=== PATIENT | female | born 1950 | race Caucasian/White ===

== ENCOUNTER 2017-12-16 12:48 | Day surgery (SDC) | payer BC, MEDICARE ==
[~2017-12-16] VITALS: Ht 157.5 cm; Wt 68.0 kg
[~2017-12-16 12:48] MED LIST: ATENOLOL25 MG PO; BENZONATATE100 MG PO; SIMVASTATIN20 MG PO; ZOLOFT50 MG PO
[2017-12-16] MEDS ORDERED: ALEVE220 M1 PO (13:05)
--- NOTE | 2017-12-16 14:27 | NUR ---
12/16/17 1427 Bia Calhoun 1421 PT ARRIVED DROWSY AND SLEEPING OFF AND ON. RESP EVEN AND UNLABORED.
--- NOTE | 2017-12-16 19:37 | OR ---
[facility] [address] [place], [place] [address] Signed DATE OF OPERATION: 12/16/2017 SURGEON: Edelmira Porter MD PREOPERATIVE DIAGNOSIS: History of colonic polyp, otherwise asymptomatic. POSTOPERATIVE DIAGNOSIS: Small polyp at 20 cm (excised), hypertrophied anal papilla x2. PROCEDURE: Total colonoscopy to cecum with cold morcellation polypectomy x1. ANESTHESIA: Intravenous sedation, fentanyl 150 mcg, Versed 5 mg. INDICATION: This 67-year-old white woman is a patient of Raji Bain and underwent colonoscopy by Dr. Westfall in [place], [place] in 2012, she was said to have polyps. She has family history of colon cancer in her mother. She is currently asymptomatic. Surveillance colonoscopy was recommended at this time. She understands risks of bleeding, infection, and perforation and wished to proceed. FINDINGS: The prep was excellent. Complete colonoscopy was undertaken to the cecum without question. She had a small polyp at 20 cm, which was excised with cold morcellation technique. It was barely visible except with narrow-band imaging. The remaining colon was normal except for some hypertrophied anal papilla on retroflexed view of the rectum. DESCRIPTION OF PROCEDURE: The patient was brought to the endoscopy suite and placed in lateral decubitus position, given intravenous sedation to the point of slurred speech and nystagmus. Digital rectal examination was normal. An Olympus video colonoscope was passed in the rectum and manipulated throughout the colon, ultimately intubating the cecum itself. The ileocecal valve and appendiceal orifice were normal. The scope was withdrawn from that point and examination throughout undertaken showing no sign of abnormality until approximately 20 cm from the anal verge, where a small polyp was noted. It was uncertain if this was much of a polyp, but with narrow-band imaging, it became more obvious. Cold morcellation polypectomy was Electronically Signed By: EDELMIRA PORTER MD 12/16/17 193 PATIENT NAME: BERENICE NEWMAN OPERATIVE REPORT DATE OF : 52 REPORT #: [id number] PHYSICIAN: EDELMIRA PORTER MD PCP: RAJI BAIN REPORT IS CONFIDENTIAL AND NOT TO BE RELEASED WITHOUT AUTHORIZATION [facility] [address], [place] [address] Signed undertaken on that basis. The scope was further withdrawn and ultimately retroflexed view in the rectum undertaken showing no sign of polyps or cancer, but a few hypertrophied anal papilla. Scope was straightened, withdrawn, removed, and the patient was taken to recovery room in good condition. CONCLUDING DIAGNOSES: 1. Small polyp of sigmoid (excised). 2. Hypertrophied anal papilla. PLAN: Recommend high-fiber diet. Repeat colonoscopy in 5 years, sooner if clinically indicated. She will return to the ongoing care of Raji Bain. MD AJ Arce/REBA /[id number] cc: Raji Bain PA-C Copies: RAJI BAIN ~ Electronically Signed By: EDELMIRA PORTER MD 12/16/17 1937 PATIENT NAME: BERENICE NEWMAN OPERATIVE REPORT DATE OF : 52 REPORT #: [id number] PHYSICIAN: EDELMIRA PORTER MD PCP: RAJI BAIN PAC REPORT IS CONFIDENTIAL AND NOT TO BE RELEASED WITHOUT AUTHORIZATION
== END 2017-12-16 15:26 | disposition home or self-care (01) ==
LOC: OPS 12:48 → DS 12:48 → OPS 14:00 → DS 14:00 → OPS 15:26
PROVIDERS: Surgery
PROC: 0DBN8ZZ Excision of Sigmoid Colon, Via Natural or Artificial Opening Endoscopic (ICD-10-PCS; principal; 2017-12-16 14:00)
DX: Z12.11 Encounter for screening for malignant neoplasm of colon (principal); K63.5 Polyp of colon; K62.89 Other specified diseases of anus and rectum; J45.909 Unspecified asthma, uncomplicated; F32.9 Major depressive disorder, single episode, unspecified; Z80.0 Family history of malignant neoplasm of digestive organs; Z86.010 Personal history of colon polyps
CPT/HCPCS: 88305; 99153; G0500; J2250; J3010

== ENCOUNTER 2018-04-12 14:10 | Emergency (ER) | payer BC, MEDICARE ==
[~2018-04-12] VITALS: Ht 157.5 cm; Wt 68.0 kg
[~2018-04-12 14:10] MED LIST changes: +ALEVE220 M1 PO
[2018-04-12] MEDS ORDERED: SIMVASTATIN20 MG PO (14:24)
== END 2018-04-12 16:06 | disposition home or self-care (01) ==
LOC: ED 14:10
PROC: 0W3Q7ZZ Control Bleeding in Respiratory Tract, Via Natural or Artificial Opening (ICD-10-PCS; principal; 2018-04-12)
DX: R04.0 Epistaxis (principal); J45.909 Unspecified asthma, uncomplicated; Z88.8 Allergy status to other drugs, medicaments and biological substances; Z91.048 Other nonmedicinal substance allergy status; Z79.899 Other long term (current) drug therapy
CPT/HCPCS: 30901; 99283

== ENCOUNTER 2021-09-23 07:25 | Emergency (ER) | payer MEDICARE ==
[~2021-09-23] VITALS: Ht 157.5 cm; Wt 68.0 kg
[2021-09-23] MEDS ORDERED: LISINOPRIL5 MG PO (08:49)
[2021-09-23] MEDS ORDERED: METOPROLOL SUCC25 MG PO (08:50)
== END 2021-09-23 08:50 | disposition home or self-care (01) ==
LOC: ED 07:25
DX: J02.9 Acute pharyngitis, unspecified (principal); Z20.822 Contact with and (suspected) exposure to COVID-19; J45.909 Unspecified asthma, uncomplicated; Z88.8 Allergy status to other drugs, medicaments and biological substances; Z91.048 Other nonmedicinal substance allergy status; Z79.899 Other long term (current) drug therapy
CPT/HCPCS: 87081; 99283; U0003

== ENCOUNTER 2023-04-22 11:39 | Day surgery (SDC) | payer MEDICARE, OTHER ==
[~2023-04-22] VITALS: Ht 157.5 cm; Wt 61.3 kg
[~2023-04-22 11:39] MED LIST changes: +LISINOPRIL5 MG PO; +MELATONIN5 M2 PO; +METOPROLOL SUCC25 MG PO; +PROZAC10 MG PO; +VENTOLIN HFA18 GM PO
[2023-04-22] MEDS ORDERED: ZYRTEC10 MG PO (12:20)
[2023-04-22 12:32] VITALS: BP 149/64
--- NOTE | 2023-04-22 13:47 | NUR ---
04/22/23 1347 Julia Carey 1337 PT ARRIVED IN PACU SLEEPY. ABD SOFT AND PASSING FLATUS. 1346 RESTING. REU.
[2023-04-22 14:09] VITALS: BP 131/61
--- NOTE | 2023-04-23 14:48 | PATH ---
[facility] [address] [facility] [place] [address] Signed SPECIMEN(S): A CECUM POLYP SPECIMEN(S): B RECTOSIGMOID POLYP SPECIMEN SOURCE: A. CECUM POLYP B. RECTOSIGMOID POLYP CLINICAL HISTORY: A. Cecum polyp. B. Rectosigmoid polyp. Preop: Hx of cecal polyp 2018. Postop: Hyperplastic polyps of rectosigmoid at cecum. FINAL PATHOLOGIC DIAGNOSIS: A. Cecum, polypectomy: - Tubular adenoma B. Colon, rectosigmoid, polypectomy: - Hyperplastic polyp BRP MICROSCOPIC EXAMINATION: Histologic sections of all submitted blocks are examined by light microscopy. These findings, together with the gross examination, support the pathologic diagnosis. BRP GROSS DESCRIPTION: A. The specimen, labeled and designated "Powel, cecum polyp," is received in formalin and consists of two maza soft tissue fragments, ranging from 0.1-0.2 cm. Entirely submitted in (A1). B. The specimen, labeled and designated "Powel, rectosigmoid colon polyp," is received in formalin and consists of five maza soft tissue fragments, ranging from 0.2-0.3 cm. Entirely submitted in (B1). JS (under the direct supervision of a pathologist) The Gross Description was prepared using a voice recognition system. The report was reviewed for accuracy; however, sound-alike word errors, addition and/or deletions may occur. If there is any question about this report, please contact Client Services. PERFORMING LABORATORY: Technical component was performed by [facility], [address] [place] [id number] (CLIA# [id number]). Professional interpretation was performed by [facility] PATIENT NAME: BERENICE MONTANO PATHOLOGY DATE OF : 52 REPORT #: [id number] PHYSICIAN: [facility] PCP: ALMA NOVAK REPORT IS CONFIDENTIAL AND NOT TO BE RELEASED WITHOUT AUTHORIZATION [facility] [address] [place], [place] [address] [id number] Diagnostician: Salo Otto MD Pathologist Electronically Signed 04/23/2023 Copies: ~ PATIENT NAME: BERENICE MONTANO PATHOLOGY DATE OF : 52 REPORT #: [id number] PHYSICIAN: [facility] PCP: ALMA NOVAK REPORT IS CONFIDENTIAL AND NOT TO BE RELEASED WITHOUT AUTHORIZATION
--- NOTE | 2023-04-24 10:30 | OR ---
[facility] [address], [place] [address] Signed DATE OF OPERATION: 04/22/2023 SURGEON: Edelmira Porter MD PREOPERATIVE DIAGNOSIS: Family history of colon cancer (mother). POSTOPERATIVE DIAGNOSES: 1. Small rectosigmoid polyps, probably hyperplastic. 2. Small polyp of cecum. PROCEDURES: Total colonoscopy to cecum with cold morcellation polypectomy of cecal polyp and multiple excisions of hyperplastic polyps of rectosigmoid. ANESTHESIA: Intravenous sedation, fentanyl 150 mcg and Versed 4 mg. INDICATIONS FOR THE PROCEDURE: This 73-year-old white woman is a patient of KERI Woodruff. She is a former nurse at [employer]. She has family history of colon cancer in her mother. She is admitted at this time to undergo surveillance colonoscopy, understands the risk of bleeding, infection, and perforation. Her last colonoscopy was in 2018, at which time a hyperplastic polyp was noted. Given her family history, a five year repeat was recommended per current AGA guidelines. FINDINGS: The prep was excellent. Complete colonoscopy was undertaken of the cecum without question. She had one small polyp of the cecum probably adenomatous, which was excised. Then, five probably hyperplastic polyps of the rectosigmoid also excised. The remaining colon was normal. DESCRIPTION OF PROCEDURE: The patient was brought to the endoscopy suite and placed in lateral decubitus position, given intravenous sedation to the point of slurred speech and nystagmus. Digital rectal examination was normal. An Olympus video colonoscope was passed into the rectum and manipulated throughout the colon, ultimately intubating the cecum itself. The ileocecal valve and appendiceal orifice were normal. A small polyp was noted in the cecum, was excised with cold Electronically Signed By: EDELMIRA PORTER MD 04/24/23 1030 PATIENT NAME: BERENICE MONTANO OPERATIVE REPORT DATE OF : 52 REPORT #: [id number] PHYSICIAN: EDELMIRA PORTER MD PCP: ALMA NOVAK REPORT IS CONFIDENTIAL AND NOT TO BE RELEASED WITHOUT AUTHORIZATION [facility] [address] [place], [place] [address] Signed morcellation technique. The scope was then withdrawn, examination throughout showed no sign of abnormality into the rectosigmoid, where small hyperplastic appearing polyps were noted. These were excised and passed in the same container. The scope was retroflexed showing no sign of abnormality. The scope was then removed. The patient taken to the recovery room in good condition. CONCLUDING DIAGNOSIS: Hyperplastic polyps, rectosigmoid and probable adenomatous polyp of cecum. PLAN: Recommend repeat colonoscopy in 5 years or sooner if clinically indicated. MD AJ Arce/REBA /[id number] cc: KERI Woodruff Copies: ~ Electronically Signed By: EDELMIRA PORTER MD 04/24/23 1030 PATIENT NAME: BERENICE MONTANO OPERATIVE REPORT DATE OF : 52 REPORT #: [id number] PHYSICIAN: EDELMIRA PORTER MD PCP: ALMA NOVAK REPORT IS CONFIDENTIAL AND NOT TO BE RELEASED WITHOUT AUTHORIZATION
== END 2023-04-22 14:20 | disposition home or self-care (01) ==
LOC: OPS 11:39 → DS 11:40 → OPS 13:00 → DS 13:00 → OPS 14:20
PROVIDERS: ATTEND Surgery
PROC: 0DBN8ZZ Excision of Sigmoid Colon, Via Natural or Artificial Opening Endoscopic (ICD-10-PCS; 2023-04-22)
PROC: 0DBH8ZZ Excision of Cecum, Via Natural or Artificial Opening Endoscopic (ICD-10-PCS; principal; 2023-04-22 13:00)
DX: Z12.11 Encounter for screening for malignant neoplasm of colon (principal); Z86.010 Personal history of colon polyps; Z90.711 Acquired absence of uterus with remaining cervical stump; Z90.49 Acquired absence of other specified parts of digestive tract; Z80.0 Family history of malignant neoplasm of digestive organs; D12.0 Benign neoplasm of cecum; K63.5 Polyp of colon
CPT/HCPCS: 88305; 99153; G0500; J2250; J3010